=== PATIENT | female | born 1955 | race Caucasian/White ===

== ENCOUNTER 2019-08-22 22:12 | Emergency (ER) | payer MEDICARE ==
[2019-08-23 01:15] LABS: Urine Appearance Clear; Urine Bacteria Absent (Absent); Urine Bilirubin Negative (Negative); Urine Blood Negative (Negative); Urine Color Straw; Urine Glucose Negative (Negative); Urine Ketones Negative (Negative); Urine Nitrite Negative (Negative); Urine Protein Negative (Negative); Urine Red Blood Cell Absent (Absent); Urine Specific Gravity 1.004 (1.010-1.030); Urine Squamous Epithelial Cell Present (Absent); Urine Urobilinogen Negative (Negative); Urine White Blood Cell 1+(6-10/hpf) (Absent)
[2019-08-23 01:16] LABS: ABS Basophils 0.1 10^3/ul (0-0.2); ABS Eosinophils 0.2 10^3/ul (0-0.6); ABS Lymphocytes 1.9 10^3/ul (1.0-4.8); ABS Monocytes 0.6 10^3/ul (0-0.8); ABS Neutrophils 2.5 10^3/ul (1.5-7.7); Eosinophil % 3.4 %; Hematocrit 39 % (35-47); Hemoglobin 13.6 g/dL (12.0-16.0); Lymphocyte % 36.4 %; Mean Corpuscular HGB Conc 35 g/dL (31-36); Mean Corpuscular Hemoglobin 31 pg (27-31); Mean Corpuscular Volume 90 fL (80-97); Mean Platelet Volume 8.2 fL (7.4-10.4); Nucleated Red Blood Cells % 0.1; Platelet Count 181 10^3/uL (150-450); Red Blood Count 4.35 10^6 /uL (3.70-4.87); Red Cell Distribution Width 13 % (10-15); White Blood Count 5.2 10^3/uL (3.5-10.8)
[2019-08-23 01:28] LABS: Albumin 3.9 g/dL (3.2-5.2); Albumin/Globulin Ratio 1.6 (1-3); BUN/Creatinine Ratio 17.4 (8-20); C Reactive Protein 3.95 mg/L (<8.01); Calcium 9.1 mg/dL (8.6-10.3); EGFR African American 73.9 (>60); EGFR Non-African American 61.1 (>60); Globulin 2.5 g/dL (2-4); Potassium 3.8 mmol/L (3.5-5.0); Total Bilirubin 0.4 mg/dL (0.2-1.0); Total Protein 6.4 g/dL (6.4-8.9)
--- NOTE | 2019-08-23 01:35 | ED ---
Shortness of Breath - HPI Summary HPI Summary: Patient complains of fatigue, sensation of pressure over the diaphragm affecting her breathing worse with exertion 2 months. States symptoms were significantly worse today. Patient also complains of a hot feeling flashing across her chest tonight while lying in bed. Patient has recently been evaluated for same by primary care, but patient is unaware of results. Denies medical history. Nonsmoker. Denies EtOH. Denies prior cardiac or pulmonary history. Positive family cardiac history, father of an AR at 59. - History of Current Complaint Chief Complaint: EDWeakness Time Seen by Provider: 08/23/19 00:34 Hx Obtained From: Patient Onset/Duration: Gradual Onset, Lasting Weeks Current Severity: Moderate Dyspnea At: Exertion Associated Signs & Symptoms: Negative - Allergy/Home Medications Allergies/Adverse Reactions: Allergies Allergy/AdvReac Type Severity Reaction Status Date / Time erythromycin base Allergy Hives Verified 08/22/19 22:18 Home Medications: Home Medications Cholecalciferol TAB* [Vitamin D TAB*] 5,000 units PO DAILY 08/23/19 [History Confirmed 08/23/19] Fluticasone Propionate [Flonase Allergy Relief] 1 spray INTRANASAL DAILY [History Confirmed 08/23/19] PMH/Surg Hx/FS Hx/Imm Hx Endocrine/Hematology History: Denies: Hx Anticoagulant Therapy Cardiovascular History: Denies: Hx Pacemaker/ICD History: Denies: Hx Dialysis Sensory History: Reports: Hx Eye Prosthesis Opthamlomology History: Denies: Hx Legally Blind EENT History: Denies: Hx Deafness Neurological History: Denies: Hx Dementia - Cancer History Hx Chemotherapy: No Hx Radiation Therapy: No Infectious Disease History: No Infectious Disease History: Denies: Traveled Outside the [place] in Last 30 Days - Family History Known Family History: Positive: Non-Contributory - Social History Alcohol Use: Occasionally Substance Use Type: Reports: Marijuana Substance Use Comment - Amount & Last Used: rarely Smoking Status (MU): Never Smoked Tobacco Review of Systems Constitutional: Negative Eyes: Negative ENT: Negative Positive: Chest Pain Respiratory: Negative Gastrointestinal: Negative Genitourinary: Negative Musculoskeletal: Negative Skin: Negative Neurological: Negative Psychological: Normal All Other Systems Reviewed And Are Negative: Yes Physical Exam Triage Information Reviewed: Yes Vital Signs On Initial Exam: Initial Vitals Temp Pulse Resp BP Pulse Ox 98.1 F 69 16 149/97 98 08/22/19 22:15 08/22/19 22:15 08/22/19 22:15 08/22/19 22:15 08/22/19 22:15 Vital Signs Reviewed: Yes Appearance: Positive: Well-Appearing Skin: Positive: Warm, Skin Color Reflects Adequate Perfusion, Dry, Cold, Numb, Tender Head/Face: Positive: Normal Head/Face Inspection Eyes: Positive: Normal ENT: Positive: Normal ENT inspection Neck: Positive: Supple Respiratory/Lung Sounds: Positive: Clear to Auscultation Cardiovascular: Positive: Normal Abdomen Description: Positive: Nontender Musculoskeletal: Positive: Normal Neurological: Positive: Normal Psychiatric: Positive: Normal AVPU Assessment: Alert - [place] Coma Scale Best Eye Response: 4 - Spontaneous Best Motor Response: 6 - Obeys Commands Best Verbal Response: 5 - Oriented Coma Scale Total: 15 Procedures - Sedation Patient Received Moderate/Deep Sedation with Procedure: No Diagnostics - Vital Signs Vital Signs Temp Pulse Resp BP Pulse Ox 08/23/19 00:11 97.6 F 60 15 123/86 98 08/22/19 22:15 98.1 F 69 16 149/97 98 - Laboratory Lab Results: Lab Results 08/23/19 08/23/19 Range/Units 00:35 00:55 Sodium 135 (135-145) mmol/L Potassium 3.8 (3.5-5.0) mmol/L Chloride 104 (101-111) mmol/L Carbon Dioxide 27 (22-32) mmol/L Anion Gap 4 (2-11) mmol/L BUN 16 (6-24) mg/dL Creatinine 0.92 (0.51-0.95) mg/dL Est GFR ( Amer) 73.9 (>60) Est GFR (Non-Af Amer) 61.1 (>60) BUN/Creatinine Ratio 17.4 (8-20) Glucose 102 H (70-100) mg/dL Calcium 9.1 (8.6-10.3) mg/dL Total Bilirubin 0.40 (0.2-1.0) mg/dL AST 19 (13-39) U/L ALT 14 (7-52) U/L Alkaline Phosphatase 55 (34-104) U/L Troponin I 0.00 (<0.04) ng/mL C-Reactive Protein 3.95 (<8.01) mg/L Total Protein 6.4 (6.4-8.9) g/dL Albumin 3.9 (3.2-5.2) g/dL Globulin 2.5 (2-4) g/dL Albumin/Globulin Ratio 1.6 (1-3) Lipase 39 (11.0-82.0) U/L Urine Color Straw Urine Appearance Clear Urine pH 7.0 (5-9) Ur Specific [place] 1.004 L (1.010-1.030) Urine Protein Negative (Negative) Urine Ketones Negative (Negative) Urine Blood Negative (Negative) Urine Nitrate Negative (Negative) Urine Bilirubin Negative (Negative) Urine Urobilinogen Negative (Negative) Ur Leukocyte Esterase Trace A (Negative) Urine WBC (Auto) 1+(6-10/hpf) A (Absent) Urine RBC (Auto) Absent (Absent) Ur Squamous Epith Cells Present A (Absent) Urine Bacteria Absent (Absent) Urine Glucose Negative (Negative) Result Diagrams: 08/23/19 00:55 08/23/19 00:55 Lab Statement: Any lab studies that have been ordered have been reviewed, and results considered in the medical decision making process. Course/Dx - Course Course Of Treatment: Patient complains of fatigue, sensation of pressure over the diaphragm affecting her breathing worse with exertion 2 months. States symptoms were significantly worse today. Patient also complains of a hot feeling flashing across her chest tonight while lying in bed. Patient has recently been evaluated for same by primary care, but patient is unaware of results. Denies medical history. Nonsmoker. Denies EtOH. Denies prior cardiac or pulmonary history. Positive family cardiac history, father of an AR at 59. Vital signs within normal limits. Labs unremarkable. TSH negative from labs done on 08/15. Chest x-ray unremarkable. EKG sinus rhythm, rate of 62, normal P axis. Patient signed out to Dr. Diaz pending results of d-dimer. - Diagnoses Provider Diagnoses: Chest pain, Fatigue Discharge ED - Sign-Out/Discharge Documenting (check all that apply): Sign-Out Patient Signing out patient TO: Cosmo Diaz - Discharge Plan Condition: Stable Disposition: HOME Patient Education Materials: Chest Pain (ED) Referrals: Sara Wilkins MD [Primary Care Provider] - Additional Instructions: Please follow up with your primary care provider within the next 1-3 days. Return to the emergency department with any new or worsening symptoms. - Billing Disposition and Condition Condition: STABLE Disposition: Home - Attestation Statements Provider Attestation: Patient was presented to me and signed out to me. Patient with chest pain and shortness of breath. Patient had negative initial troponin. Patient waiting second troponin and d-dimer. Patient had negative lab results and was home with PCP follow-up
--- NOTE | 2019-08-23 02:54 | ED ---
Progress - Progress Note Progress Note: Pt is a signout from DARNELL Britt, at 0230 on 08/23/19 pending lab results. Course/Dx - Course Course Of Treatment: Patient is signed out from Tony Ramos. Patient is undergoing a chest pain workup. Patient had a negative initial troponin but was pending a repeat troponin and d-dimer. Patient had a negative d-dimer and subsequent troponin. Patient was discharged with PCP follow-up - Diagnoses Provider Diagnoses: Chest pain, Fatigue Discharge ED - Sign-Out/Discharge Documenting (check all that apply): Patient Departure, Receiving Sign-Out Receiving patient FROM: Dashawn Ramos - Discharge Plan Condition: Stable Disposition: HOME Patient Education Materials: Chest Pain (ED) Referrals: Sara Wilkins MD [Primary Care Provider] - Additional Instructions: Please follow up with your primary care provider within the next 1-3 days. Return to the emergency department with any new or worsening symptoms. - Billing Disposition and Condition Condition: STABLE Disposition: Home - Attestation Statements Document Initiated by Scribe: Yes Documenting Scribe: Jil Jose Provider For Whom Valencia is Documenting (Include Credential): Cosmo Diaz MD. Scribe Attestation: Jil Ramirez, scribed for Cosmo Diaz MD. on 08/23/19 at 0528. Scribe Documentation Reviewed: Yes Provider Attestation: The documentation as recorded by the scribeJil accurately reflects the service I personally performed and the decisions made by Cosmo pathak MD. Status of Scribe Document: Viewed
[2019-08-23 05:11] VITALS: BP 146/94
--- NOTE | 2019-08-23 15:43 | ED ---
Imaging and Labs Follow Up Follow Up Type: Imaging Imaging Result: HYPERINFLATION, CONSISTENT WITH COPD. Patient Communication/Plan: No change in treatment needed. Provider Diagnoses: Chest pain, Fatigue
== END 2019-08-23 05:11 | disposition home or self-care (01) ==
LOC: ED 22:12
DX: R53.83 Other fatigue (principal); R07.9 Chest pain, unspecified; Z79.899 Other long term (current) drug therapy; Z88.1 Allergy status to other antibiotic agents
CPT/HCPCS: 36415; 71046; 80053; 81003; 81015; 83690; 84484; 85025; 85379; 86140; 87086; 93005; 99283